=== PATIENT | female | born 1975 | race Caucasian/White ===

== ENCOUNTER 2019-01-23 16:43 | Emergency (ER) | payer MEDICAID ==
[~2019-01-23] VITALS: Ht 152.4 cm; Wt 82.6 kg
[2019-01-23 16:49] VITALS: Ht 152.4 cm; Wt 82.6 kg
[2019-01-23 17:49] LABS: PLATELET COUNT 334 x10^3mcL (130-400)
[2019-01-23 17:55] LABS: RED CELL DISTRIBUTION WIDTH 15.1 % (11.5-14.5)
[2019-01-23 18:04] LABS: CALCIUM 9.5 mg/dL (8.5-10.1); CARBON DIOXIDE 26.2 mmol/L (21-32); CHLORIDE SERUM 105 mmol/L (98-107); CREATININE SERUM 0.9 mg/dL (0.6-1.0); GFR1 > 60 mL/min; GLUCOSE SERUM 113 mg/dL (74-106); POTASSIUM SERUM 3.6 mmol/L (3.5-5.1); SODIUM SERUM 140 mmol/L (136-145)
[2019-01-23 18:08] LABS: ALBUMIN 3.8 g/dL (3.4-5.0); ALKALINE PHOSPHATASE 78 U/L (46-116); ALT/SGPT 32 U/L (14-59); AST/SGOT 16 U/L (15-37); BILIRUBIN TOTAL 0.3 mg/dL (0.20-1.00); LIPASE 185 IU/L (73-393)
[2019-01-23 18:10] LABS: TOTAL PROTEIN, SERUM 8.4 g/dL (6.4-8.2)
[2019-01-23 21:52] VITALS: BP 156/62
== END 2019-01-23 21:52 | disposition home or self-care (01) ==
LOC: ED 16:43
DX: N23 Unspecified renal colic (principal); K80.20 Calculus of gallbladder without cholecystitis without obstruction
CPT/HCPCS: J1885; J2405; J7030